=== PATIENT | female | born 1945 | race Caucasian/White ===

== ENCOUNTER → 2018-09-17 | Day surgery (SDC) | payer MEDICARE, OTHER ==
[2014-09-21 14:39] VITALS: BP 157/90
[~2018-09-17] MED LIST: CRESTOR5 MG PO; FISH OIL500 MG PO; MULTI VITAMINS1 TAB PO; NEXIUM 20MG20 MG PO; NORCO 325 MG-51 TA1 PO; SYNTHROID0.025 MG PO
== END ==
LOC: MSO 10:28
DX: H26.491 Other secondary cataract, right eye (principal); E03.9 Hypothyroidism, unspecified; E78.00 Pure hypercholesterolemia, unspecified; Z90.710 Acquired absence of both cervix and uterus; Z95.0 Presence of cardiac pacemaker; Z79.51 Long term (current) use of inhaled steroids; Z88.3 Allergy status to other anti-infective agents

== ENCOUNTER → 2018-10-15 | Day surgery (SDC) | payer MEDICARE, OTHER ==
[2014-09-21 14:39] VITALS: BP 157/90
== END ==
LOC: MSO 10:51
DX: H26.492 Other secondary cataract, left eye (principal); E78.00 Pure hypercholesterolemia, unspecified; E03.9 Hypothyroidism, unspecified; Z90.710 Acquired absence of both cervix and uterus; Z79.52 Long term (current) use of systemic steroids; Z88.3 Allergy status to other anti-infective agents

== ENCOUNTER 2020-10-24 09:46 | Outpatient (RCR) | payer MEDICARE, OTHER ==
[2014-09-21 14:39] VITALS: BP 157/90
== END 2020-11-14 17:00 ==
LOC: OT 09:46
DX: M65.4 Radial styloid tenosynovitis [de Quervain] (principal); M77.8 Other enthesopathies, not elsewhere classified; Z95.0 Presence of cardiac pacemaker

== ENCOUNTER 2021-02-23 08:50 | Outpatient (RCR) | payer MEDICARE, OTHER | END 2021-05-24 | disposition home or self-care (01) | LOC: PT | DX: M76.32 Iliotibial band syndrome, left leg (principal) ==

== ENCOUNTER → 2021-04-29 | Outpatient (CLI) | payer MEDICARE, OTHER | LOC: LAB 13:17 | DX: R09.81 Nasal congestion (principal); Z20.822 Contact with and (suspected) exposure to COVID-19 ==

== ENCOUNTER 2022-02-18 07:02 | Emergency (ER) | payer MEDICARE, OTHER ==
[~2022-02-18] VITALS: Ht 162.6 cm; Wt 104.5 kg
[2022-02-18] MEDS ORDERED: LOPRESSOR 225 MG/TAB PO (07:26)
[2022-02-18] MEDS ORDERED: ELIQUIS5 MG PO (07:26)
[2022-02-18] MEDS ORDERED: GLUCOSAMINE PO (07:27)
[2022-02-18] MEDS ORDERED: SYNTHROID0.05 MG PO (07:27)
[2022-02-18 09:09] LABS: BASO # 0.03 K/mm3 (0.02-0.10); EOS # 0.05 K/mm3 (0.04-0.40); HEMATOCRIT 40.9 % (37.0-47.0); HEMOGLOBIN 13.3 g/dL (12.5-16.0); LYMPH# 0.61 K/mm3 (1.50-4.00); MEAN CELL VOLUME 100 fl (78-100); MEAN CORPUSCULAR HEMOGLOBIN 32 pg (27-31); MEAN CORPUSCULAR HGB CONC 33 g/dL (33-37); MEAN PLATELET VOLUME 9.6 fl (7.4-10.4); MONO # 0.54 K/mm3 (0.20-0.80); NEU # 3.81 K/mm3 (1.40-6.50); PLATELET COUNT 157 K/mm3 (130-400); RED CELL DISTRIBUTION WIDTH 13.6 % (11.5-14.5); WHITE BLOOD COUNT 5.1 K/mm3 (4.8-10.8)
[2022-02-18 09:21] LABS: POTASSIUM 4.4 mmol/L (3.5-5.1)
[2022-02-18 09:22] LABS: CALCIUM 9.7 mg/dL (8.3-10.5)
[2022-02-18 10:25] VITALS: BP 147/72
== END 2022-02-18 10:30 | disposition home or self-care (01) ==
LOC: ED 07:02
PROVIDERS: Family Medicine
DX: U07.1 COVID-19 (principal)

== ENCOUNTER 2022-05-29 11:12 | Emergency (ER) | payer MEDICARE, OTHER ==
[~2022-05-29] VITALS: Ht 162.6 cm; Wt 107.7 kg
[~2022-05-29 11:12] MED LIST changes: +ELIQUIS5 MG PO; +GLUCOSAMINE PO; +LOPRESSOR 225 MG/TAB PO; +SYNTHROID0.05 MG PO
[2022-05-29 12:18] LABS: BASO # 0.05 K/mm3 (0.02-0.10); EOS # 0.25 K/mm3 (0.04-0.40); EOS % 4.4 % (1.0-5.0); HEMATOCRIT 41.7 % (37.0-47.0); HEMOGLOBIN 13.7 g/dL (12.5-16.0); LYMPH# 1.88 K/mm3 (1.50-4.00); MEAN CELL VOLUME 100 fl (78-100); MEAN CORPUSCULAR HEMOGLOBIN 33 pg (27-31); MEAN CORPUSCULAR HGB CONC 33 g/dL (33-37); MEAN PLATELET VOLUME 9.6 fl (7.4-10.4); MONO # 0.58 K/mm3 (0.20-0.80); NEU # 2.91 K/mm3 (1.40-6.50); PLATELET COUNT 183 K/mm3 (130-400); RED BLOOD COUNT 4.17 M/mm3 (4.10-5.30); RED CELL DISTRIBUTION WIDTH 13.4 % (11.5-14.5); WHITE BLOOD COUNT 5.7 K/mm3 (4.8-10.8)
[2022-05-29 12:34] LABS: ALBUMIN 3.7 g/dL (3.4-4.8); POTASSIUM 4.4 mmol/L (3.5-5.1); SODIUM 142 mmol/L (136-145)
[2022-05-29 12:36] LABS: GLUCOSE 95 mg/dL (65-105); TOTAL PROTEIN 6.1 g/dL (6.2-8.1)
[2022-05-29 12:37] LABS: CARBON DIOXIDE 26 mmol/L (23-31)
[2022-05-29 12:38] LABS: TOTAL BILIRUBIN 0.6 mg/dL (0.2-1.2)
[2022-05-29 12:42] LABS: AST-SGOT 17 U/L (5-34)
[2022-05-29 12:43] LABS: ALT/SGPT 7 U/L (0-55); MAGNESIUM 2.08 mg/dL (1.60-2.60)
[2022-05-29 12:53] LABS: TROPONIN-I < 0.030 ng/mL (<0.030)
[2022-05-29 14:33] VITALS: BP 114/82
== END 2022-05-29 14:35 | disposition home or self-care (01) ==
LOC: ED 11:12
PROVIDERS: Physician Assistant
DX: I48.91 Unspecified atrial fibrillation (principal); R79.89 Other specified abnormal findings of blood chemistry; Z79.01 Long term (current) use of anticoagulants; Z79.899 Other long term (current) drug therapy